=== PATIENT | male | born 1960 | race Caucasian/White ===

== ENCOUNTER 2020-04-13 08:00 | Outpatient (RCR) | payer OTHER, SELFPAY ==
[2020-04-13] MEDS: ACETAMINOPHEN 325 MG TABLET 650 MG PO (13:39)
[2020-04-13] MEDS: diphenhydrAMINE HCl CAP 25 MG CAPSULE PO (13:40)
[2020-04-13] MEDS: FAMOTIDINE 20 MG TABLET PO (13:43)
[2020-04-13 13:46] VITALS: BP 133/60; PULSE 87; RESP 20; TEMP 36.6; O2SAT 97
--- NOTE | 2020-04-13 15:13 | PC.NURSE ---
Patient given covid discharge instruction sheet and covid 19 facts sheet with understanding stated to instruction.
[2020-04-13 15:44] VITALS: BP 117/62; PULSE 79; RESP 18; TEMP 36.9; O2SAT 96
--- NOTE | 2020-04-14 08:39 | PC.NURSE ---
Patient called and stated he feels better after his Bamlanivimab treatment.
== END 2020-04-24 13:29 ==
LOC: AMCINF 08:00
PROVIDERS: PCP Physician Assistant; Visit Provider Physician Assistant
DX: Z23 Encounter for immunization (principal); U07.1 COVID-19; E11.9 Type 2 diabetes mellitus without complications
CPT/HCPCS: A9270; J7050; M0239; Q0239

== ENCOUNTER → 2021-02-26 10:36 | Outpatient (CLI) | payer OTHER, SELFPAY ==
--- NOTE | ~2021-02-26 | XR_ITS ---
EXAMINATION: XR lumbar spine 2-3V EXAM DATE: 02/26/2021 16:31 INDICATION: Low back pain, right foot numbness. Symptoms 3 days. TECHNIQUE: Lumber spine frontal, lateral, lateral L5-S1 projections for interpretation. There is no prior study for comparison. FINDINGS: There is a transitional L5 segment which is sacralized. Moderate disc disease at L4-5, mil d to moderate at L3-4 and mild at the other thoracolumbar levels. Moderate mid and lower lumbar facet arthropathy. Mild scattered aortic arteriosclerosis. Sacrum, sacroiliac joints, sacral arcuate lines are intact. IMPRESSION: 1. Moderate mid and lower lumbar facet arthropathy, L4-5 disc disease. 2. Sacralized L5 segment. Reviewed, dictated and finalized at location A. [facility]
== END ==
PROVIDERS: PCP Family Medicine; Visit Provider Physician Assistant
DX: M54.50 Low back pain, unspecified (principal); M51.36 Other intervertebral disc degeneration, lumbar region
CPT/HCPCS: 72100

== ENCOUNTER 2023-01-27 01:45 | Day surgery (SDC) | payer OTHER, SELFPAY ==
[2023-01-14 14:31] VITALS: BMI 42.0
--- NOTE | 2023-01-24 09:50 | SUR.PREOP ---
Patient called regarding upcoming procedure. Reviewed preop instructions, appointment times, and procedure prep.
--- NOTE | 2023-01-24 09:54 | SUR.PREOP ---
Patient called regarding upcoming procedure. Reviewed preop instructions, appointment times, and procedure prep.
[2023-01-27 07:31] VITALS: BP 130/74; PULSE 74; RESP 18; TEMP 36.3; O2SAT 97
[2023-01-27] MEDS: LACTATED RINGERS 1,000 ML 150 ML IV CONT (07:42)
[2023-01-27 07:43] LABS: Glucose Point of Care 132 mg/dl (65-105)
--- NOTE | 2023-01-27 07:50 | PM.HPGS ---
History of Present Illness History of Present Illness Consent: Risks, benefits, and alternatives have been discussed and questions answered. Patient agrees to proceed with procedure. Chief complaint: Personal history of colon polyps Narrative: Mikel Ge is a 63 year old male Presents for screening colonoscopy. Patient's current weight appetite and bowel movements are normal. Patient denies abdominal pain. He has had no bleeding. Family history noncontributory. Patient was found to have benign adenomatous colon polyp in 2017. Review of Systems Review of Systems: Review of systems noncontributory. [facility] Past Medical History Medical History (Updated 09/11/22 @ 13:43 by Emiliana Nair MA) Acne rosacea Degenerative disc disease Diabetes mellitus type 2 in obese Hyperlipidemia Hypertension Personal history of colonic polyps Surgical History Surgical History (Updated 09/09/22 @ 12:17 by JOSHUA Booth) History of arthroscopic surgery of shoulder left rotator cuff repair 08/29/2017 Family History Family History (Updated 09/09/22 @ 12:35 by JOSHUA Booth) Father Heart disease Mother Hypertension Diabetes mellitus Asthma Grandparent Diabetes mellitus Heart disease Hypertension Social History Social History (Updated 09/09/22 @ 10:42 by Emiliana Nair MA) Smoking packs per day: 2.5 Smoking cigarettes per day: 50.0 Years smoked: 35 Smoking pack-years: 87.50 Smoking status: Former smoker Tobacco type: cigarettes Smokeless tobacco user: chewing tobacco Smoking end date: 03/24/13 Alcohol intake: current Alcohol use details: occasionally Substance use: never Substance use type: does not use Lack of Transportation: No Lack of Food: Never True Current Housing: I Have Housing Concerned About Future Housing: No Difficulty Paying Gas/Electric Bills: No Difficulty Paying for Meds: No Currently Unemployed: No Education: High School Diploma/GED Difficulty w/ Childcare or Family Care: No Living arrangements: with family Occupation/Education: occupation Gender identity (if verbalized by the patient): Male Sexual Orientation (if Verbalized by the Patient): Straight or Heterosexual Spiritual care concerns: No Meds Home Medications and Allergies Home Medications Medication Instructions Recorded Confirmed Type atorvastatin 20 mg tablet 20 mg PO HS 04/13/20 01/27/23 History glipizide 5 mg tablet, extended 5 mg PO BID 01/21/21 11/06/23 History release 24 hr (Glucotrol XL) metformin 500 mg tablet 1,000 mg PO .WITH EVENING MEAL 04/13/20 01/27/23 History olmesartan 40 mg-amlodipine 5 1 tablet PO DAILY 04/13/20 01/27/23 History mg-hydrochlorothiazide 25 mg tablet (Tribenzor) semaglutide 1 mg/dose (2 mg/1.5 1 mg subcut WEEKLY 04/13/20 01/27/23 History mL) subcutaneous pen injector (Ozempic) meloxicam 15 mg tablet 15 mg PO DAILY 09/09/22 01/27/23 History Allergies Allergy/AdvReac Type Severity Reaction Status Date / Time penicillin G Allergy Intermediate Hives / Verified 01/27/23 07:28 Red Face BEE STINGS Allergy Mild Swelling Uncoded 01/27/23 07:28 Vital Signs Vital Signs - 24 hr 01/27/23 07:31 Temperature 97.4 F L Pulse Rate 74 Respiratory Rate 18 Blood Pressure 130/74 Pulse Oximetry 97 Oxygen Delivery Room Air Exam Narrative: Physical exam reveals patient to be alert. Vital signs stable. HEENT exam is unremarkable. Patient is anicteric. Lungs are clear to auscultation and percussion. Heart is without murmur or extra sounds. Abdomen Is obese. bowel sounds are present soft nontender with no organomegaly. Digital external rectal exam is normal. Assessment and Plan Assessment and plan (1) Personal history of colonic polyps: Code(s): Z86.010 - Personal history of colonic polyps Status: Acute Assessment and Plan: Patient has
--- NOTE | 2023-01-27 08:07 | WPDANESEPPF ---
Anes - Initial Pre Proc Eval Procedure: Operation Date: 01/27/23 08:30 Proposed Procedures p Colonoscopy - Alexander Shah MD Date/Time: 01/27/23 08:07 Surgeon: Alexander Shah MD Pre Op Diagnosis: Personal history of colon polyps Patient Data Age: 63 Gender: M Height: 1.7 m Weight: 119.9 kg Last Vital Signs Temp 97.4 F L 01/27/23 07:31 Pulse 74 01/27/23 07:31 Resp 18 01/27/23 07:31 BP 130/74 01/27/23 07:31 Pulse Ox 97 01/27/23 07:31 O2 Del Method Room Air 01/27/23 07:31 Allergies Allergy/AdvReac Type Severity Reaction Status Date / Time penicillin G Allergy Intermediate Hives / Verified 01/27/23 07:28 Red Face BEE STINGS Allergy Mild Swelling Uncoded 01/27/23 07:28 Home Medications Medication Instructions Recorded Confirmed Type atorvastatin 20 mg tablet 20 mg PO HS 04/13/20 01/27/23 History glipizide 5 mg tablet, extended 5 mg PO BID 04/13/20 01/27/23 History release 24 hr (Glucotrol XL) metformin 500 mg tablet 1,000 mg PO .WITH EVENING MEAL 04/13/20 01/27/23 History olmesartan 40 mg-amlodipine 5 1 tablet PO DAILY 04/13/20 01/27/23 History mg-hydrochlorothiazide 25 mg tablet (Tribenzor) semaglutide 1 mg/dose (2 mg/1.5 1 mg subcut WEEKLY 04/13/20 01/27/23 History mL) subcutaneous pen injector (Ozempic) meloxicam 15 mg tablet 15 mg PO DAILY 09/09/22 01/27/23 History Laboratory Tests 01/27/23 07:40 POC Capillary Glucose 132 H mg/dl (65-105) Patient hx anesthesia problems: none Family hx anesthesia problems: none Results Review: All pre-operative results and documents have been reviewed as part of the pre-operative evaluation. [facility] Past Medical History Medical History (Updated 09/11/22 @ 13:43 by Emiliana Nair MA) Acne rosacea Degenerative disc disease Diabetes mellitus type 2 in obese Hyperlipidemia Hypertension Personal history of colonic polyps Surgical History Surgical History (Updated 09/09/22 @ 12:17 by JOSHUA Booth) History of arthroscopic surgery of shoulder left rotator cuff repair 08/29/2017 Family History Family History (Updated 09/09/22 @ 12:35 by JOSHUA Booth) Father Heart disease Mother Hypertension Diabetes mellitus Asthma Grandparent Diabetes mellitus Heart disease Hypertension Social History Social History (Updated 09/09/22 @ 10:42 by Emiliana Nair MA) Smoking packs per day: 2.5 Smoking cigarettes per day: 50.0 Years smoked: 35 Smoking pack-years: 87.50 Smoking status: Former smoker Tobacco type: cigarettes Smokeless tobacco user: chewing tobacco Smoking end date: 03/24/13 Alcohol intake: current Alcohol use details: occasionally Substance use: never Substance use type: does not use Lack of Transportation: No Lack of Food: Never True Current Housing: I Have Housing Concerned About Future Housing: No Difficulty Paying Gas/Electric Bills: No Difficulty Paying for Meds: No Currently Unemployed: No Education: High School Diploma/GED Difficulty w/ Childcare or Family Care: No Living arrangements: with family Occupation/Education: occupation Gender identity (if verbalized by the patient): Male Sexual Orientation (if Verbalized by the Patient): Straight or Heterosexual Spiritual care concerns: No Anes - Eval Final PreProcedure Day of Procedure 01/27/23 08:07 Patient weight: morbidly obese Heart: regular rate and rhythm Lungs: clear to auscultation Airway: Mallampati scale class III Neurological: alert and oriented Last oral intake: >/= 8 hours ASA classification: III Emergent: no Anesthetic plan: proceed Anesthesia type and monitoring: general GIVS and standard monitoring Results Review: All pre-operative results and documents have been reviewed as part of the pre-operative evaluation. Informed Consent: The patient's anesthetic plan and its attendant risks and benefits we
[2023-01-27 08:49] VITALS: BP 115/67; PULSE 80; RESP 18; O2SAT 97
[2023-01-27 08:59] VITALS: BP 115/67; PULSE 73; RESP 20; O2SAT 99
[2023-01-27 09:09] VITALS: BP 107/69; PULSE 63; RESP 15; O2SAT 98
== END 2023-01-27 09:20 | disposition home or self-care (01) ==
PROVIDERS: PCP Family Medicine; Visit Provider Internal Medicine Gastroenterology
PROC: 0DJD8ZZ Inspection of Lower Intestinal Tract, Via Natural or Artificial Opening Endoscopic (ICD-10-PCS; CPT 45378; principal; 2023-01-27 08:30)
DX: Z12.11 Encounter for screening for malignant neoplasm of colon (principal); K64.8 Other hemorrhoids; Z86.010 Personal history of colon polyps; E11.9 Type 2 diabetes mellitus without complications; E78.5 Hyperlipidemia, unspecified; I10 Essential (primary) hypertension; Z87.891 Personal history of nicotine dependence; E66.01 Morbid (severe) obesity due to excess calories; Z68.41 Body mass index [BMI] 40.0-44.9, adult; Z79.84 Long term (current) use of oral hypoglycemic drugs; Z79.85 Long-term (current) use of injectable non-insulin antidiabetic drugs
CPT/HCPCS: 45378; 82948; J2704; J7120

== ENCOUNTER 2024-09-08 09:23 | Outpatient (CLI) | payer OTHER, SELFPAY ==
--- NOTE | ~2024-09-08 | XR_ITS ---
Lumbosacral Spine: AP and lateral views Clinical History: Pain Findings: The normal lordotic curve is maintained. The vertebral bodies and posterior elements are i ntact. There is advanced facet arthropathy from L4 through S1. There is moderate degenerative disc na rrowing at L4-L5. There is moderate degenerative disc narrowing at L5-S1. The sacroiliac joints are n ormally outlined. Impression: Moderate to advanced degenerative spondylosis of the lower lumbar spine, as above. Reviewed, dictated and finalized at location M. Impression: Moderate to advanced degenerative spondylosis of the lower lumbar spine, as abo ve.
--- NOTE | ~2024-09-08 | XR_ITS ---
AP view of the pelvis and AP and lateral views of the right hip Clinical history: Pain Findings: No acute fracture or dislocation is seen. Osseous alignment is anatomic. Bilateral hip and SI joint spaces are preserved. Soft tissues are unremarkable. Impression: No significant abnormality is seen. Reviewed, dictated and finalized at [facility]. Impression: No significant abnormality is seen.
== END 2024-09-08 09:24 | disposition home or self-care (01) ==
PROVIDERS: PCP Family Medicine
DX: M25.551 Pain in right hip (principal); M47.26 Other spondylosis with radiculopathy, lumbar region
CPT/HCPCS: 72100; 73502